=== PATIENT | male | born 2000 | race Caucasian/White ===

== ENCOUNTER 2021-02-07 09:24 | Emergency (ER) | payer OTHER ==
[~2021-02-07] VITALS: Ht 175.3 cm; Wt 90.3 kg
[2021-02-07 12:53] LABS: BASO # 0.1 10^3/uL (0.0-0.2); BASO % 0.8 % (0.0-1.0); EOS # 0.2 10^3/uL (0.0-0.5); EOS % 3.4 % (0.0-3.0); HEMOGLOBIN 14.2 g/dl (13.5-17.5); LYMPH # 2.3 10^3/uL (1.5-5.0); LYMPH % 37.5 % (24.0-44.0); MEAN CORPUSCULAR HEMOGLOBIN 26.3 pg (27.0-33.0); MEAN CORPUSCULAR HGB CONC 32.3 g/dl (32.0-36.5); MEAN CORPUSCULAR VOLUME 81.6 fl (80.0-96.0); MONO # 0.7 10^3/uL (0.0-0.8); MONO % 10.8 % (2.0-8.0); NEUTROPHILS # 2.9 10^3/uL (1.5-8.5); NEUTROPHILS % 47.2 % (36.0-66.0); PLATELET COUNT, AUTOMATED 298 10^3/uL (150-450); RED BLOOD COUNT 5.39 10^6/uL (4.30-6.10); WHITE BLOOD COUNT 6.2 10^3/uL (4.0-10.0)
[2021-02-07] MEDS ORDERED: ISOVUE-370 76% 100ML VIAL As Ordered ONE (12:57)
[2021-02-07 13:21] LABS: CK-MB VALUE MASS < 1.0 NG/ML (<3.6); CPK CREATINE PHOSPHOKINASE 165 U/L (39-308); MAGNESIUM LEVEL 2.4 MG/DL (1.8-2.4); MB/CK RELATIVE INDEX 0.61 (< OR =4); TROPONIN I < 0.02 NG/ML (< 0.10)
--- NOTE | 2021-02-07 13:47 | REP ---
INDICATION: chest pain, palpitations and SOB COMPARISON: None. TECHNIQUE: CT angiography of the chest after the intravenous administration of 75 cc Isovue 370 attention pulmonary arteries. FINDINGS: There is less than optimal visualization of the pulmonary arterial vasculature. This is secondary to injection timing. No definite abnormal focal filling defects are identified. There is no mediastinal or hilar adenopathy. There are no pleural or pericardial effusions. The imaged upper abdomen and imaged osseous structures are within normal limits. Evaluation of the lung cai shows no abnormal nodules, masses, or opacities. IMPRESSION: Suboptimal opacification of the pulmonary arterial vasculature as described above. Small emboli could be obscured. Examination is otherwise unremarkable. Consider ventilation perfusion lung scan at this time if clinically relevant. <Electronically signed by Gene Schmitt > 02/07/21 [id number]
[2021-02-07 14:40] VITALS: BP 138/53
--- NOTE | 2021-02-07 19:19 | ECGEPIP ---
[facility] - ED Test Date: 2021-02-07 Pat Name: DARRION ROSENTHAL Department: Room: - Gender: Male [employer]: adore : 2000 Requested By: CALVIN Gillette Order Number: [id number] Reading MD: Meenakshi Gallo Measurements Intervals [place] Rate: 57 P: 41 RI: 138 QRS: 17 QRSD: 86 T: 9 QT: 406 QTc: 395 Interpretive Statements Sinus bradycardia No prior Electronically Signed on 02-07-2021 19:19:07 EDT by Meenakshi Gallo
== END 2021-02-07 15:02 | disposition home or self-care (01) ==
LOC: M ED 09:24
DX: R00.2 Palpitations (principal); R07.89 Other chest pain; R21 Rash and other nonspecific skin eruption; R06.02 Shortness of breath
CPT/HCPCS: 36415; 71275; 80047; 82550; 82553; 83735; 84484; 85025; 93005; 99284; Q9967

== ENCOUNTER 2021-12-07 08:58 | Emergency (ER) | payer OTHER ==
[~2021-12-07] VITALS: Ht 172.7 cm; Wt 89.0 kg
[2021-12-07] MEDS ORDERED: NS 1,000 ML IV ONE (09:25)
[2021-12-07] MEDS ORDERED: KETOROLAC 30 MG/ML 1ML VIAL IV ONE (09:25)
[2021-12-07] MEDS ORDERED: ONDANSETRON 4MG/2ML VIAL IV ONE (09:25)
[2021-12-07 09:57] LABS: BASO # 0.1 10^3/uL (0.0-0.2); BASO % 0.7 % (0.0-1.0); EOS # 0.4 10^3/uL (0.0-0.5); EOS % 3.1 % (0.0-3.0); HEMATOCRIT 41.5 % (42.0-52.0); HEMOGLOBIN 13.7 g/dl (13.5-17.5); LYMPH # 1.8 10^3/uL (1.5-5.0); MEAN CORPUSCULAR HEMOGLOBIN 26.3 pg (27.0-33.0); MEAN CORPUSCULAR VOLUME 79.7 fl (80.0-96.0); MONO # 0.8 10^3/uL (0.0-0.8); MONO % 6.8 % (2.0-8.0); NEUTROPHILS # 8.9 10^3/uL (1.5-8.5); NEUTROPHILS % 74.1 % (36.0-66.0); PLATELET COUNT, AUTOMATED 290 10^3/uL (150-450); RED BLOOD COUNT 5.21 10^6/uL (4.30-6.10)
[2021-12-07 10:19] LABS: BILIRUBIN, URINE MANUAL NEGATIVE (NEGATIVE); GLUCOSE, URINE (UA) MANUAL NEGATIVE (NEGATIVE); KETONE, URINE MANUAL NEGATIVE (NEGATIVE); UROBILINOGEN, URINE MANUAL NORMAL (NORMAL)
[2021-12-07] MEDS ORDERED: TAMSULOSIN 0.4 MG CAP PO ONE (10:30)
[2021-12-07 10:37] LABS: ALT/SGPT 37 U/L (12-78); BILIRUBIN,DIRECT 0.1 MG/DL (0.0-0.2); BILIRUBIN,TOTAL 0.4 MG/DL (0.2-1.0); BLOOD UREA NITROGEN 11 MG/DL (7-18); CALCIUM LEVEL 9.3 MG/DL (8.5-10.1); CARBON DIOXIDE LEVEL 27 MEQ/L (21-32); CHLORIDE LEVEL 108 MEQ/L (98-107); CREATININE FOR GFR 1.33 MG/DL (0.70-1.30); GLOMERULAR FILTRATION RATE > 60.0 (>60); GLUCOSE, FASTING 136 MG/DL (70-100); LIPASE 51 U/L (73-393); POTASSIUM SERUM 4.6 MEQ/L (3.5-5.1); SODIUM LEVEL 139 MEQ/L (136-145); TOTAL PROTEIN 7.1 GM/DL (6.4-8.2)
[2021-12-07 10:56] LABS: RBC, URINE 40-50 /hpf (0-3)
[2021-12-07 10:57] LABS: BACTERIA, URINE SMALL AMOUNT
[2021-12-07 11:00] LABS: SQUAMOUS EPITHELIAL CELL URINE NONE SEEN /hpf (SMALL AMT)
[2021-12-07] MEDS ORDERED: FLOM0.4C39 PO (12:38)
[2021-12-07] MEDS ORDERED: KETO10TAB PO (12:38)
[2021-12-07] MEDS ORDERED: PERC5TAB12 PO (12:38)
[2021-12-07 12:56] VITALS: BP 110/57
== END 2021-12-07 12:58 | disposition home or self-care (01) ==
LOC: M ED 08:58 → EDBD 08:58 → M ED 12:58
DX: N13.2 Hydronephrosis with renal and ureteral calculous obstruction (principal); R11.2 Nausea with vomiting, unspecified; F32.A Depression, unspecified; Z79.899 Other long term (current) drug therapy
CPT/HCPCS: 74176; 80047; 80048; 80076; 81000; 81015; 83605; 83690; 85025; 93041; 96361; 96374; 96375; 99285; J1885; J2405